=== PATIENT | female | born 1990 | race Caucasian/White ===

== ENCOUNTER → 2018-01-05 | Outpatient (CLI) | payer BC | LOC: M WUC 15:54 | DX: M25.571 Pain in right ankle and joints of right foot (principal); M77.31 Calcaneal spur, right foot | CPT/HCPCS: 73610 ==

== ENCOUNTER → 2019-02-25 | Outpatient (CLI) | payer OTHER ==
[~2019-02-25] MED LIST: *ANUSOI RE; FLAG500T OR; IBUP400T OR; IBUP600T OR; Lanolin Cream TOP; PERC5TAB8 OR; PROV10TA OR; Prenatal Vitamins PO; VIBR100C OR
--- NOTE | 2019-02-26 05:21 | REP ---
Clinical: Left elbow pain . Technique: AP, lateral, bilateral oblique views of the left elbow. Findings: No acute fracture or dislocation is appreciated. Joint spaces and surrounding soft tissues appear normal. Lateral view demonstrates normal positioning to the anterior and posterior fat pads without evidence for effusion/hemarthrosis. No subcutaneous emphysema or foreign body identified. Impression: Normal left elbow radiographs. Electronically Signed by Andriy Lyons MD 02/26/2019 05:13 A
== END ==
LOC: M WUC 15:53
PROVIDERS: ATTEND Physician Assistant
DX: M25.522 Pain in left elbow (principal)

== ENCOUNTER → 2019-08-10 | Outpatient (CLI) | payer OTHER ==
--- NOTE | 2019-08-10 12:53 | REP ---
Left foot: Four views. History: Pain in the foot. Findings: Four views of the left foot show overall normal mineralization. There is no visible fracture or subluxation. Impression: Negative radiographs left foot. Electronically Signed by Loco Watters MD 08/10/2019 12:44 P
== END ==
LOC: M ADAMS 12:22
PROVIDERS: ATTEND Physician Assistant
DX: M79.672 Pain in left foot (principal)

== ENCOUNTER → 2019-09-11 | Outpatient (CLI) | payer OTHER ==
--- NOTE | 2019-09-11 14:39 | REP ---
Clinical: Right ankle pain . Technique: AP, lateral, bilateral oblique views. Findings: No acute fracture or dislocation. Skeletal structures and joint spaces are intact and normal. Ankle mortise appears stable. No subcutaneous emphysema or radiodense foreign body. Impression: Normal right ankle radiograph series. Electronically Signed by Andriy Lyons MD 09/11/2019 02:30 P
--- NOTE | 2019-09-11 14:49 | REP ---
Clinical: Pain Technique: AP, lateral, bilateral oblique views right foot pain . Findings: The osseous structures and joint spaces are intact and normal. There is no evidence for acute fracture or dislocation. Surrounding soft tissues are unremarkable. No subcutaneous emphysema or radiodense foreign body. Impression: Age-appropriate examination. No acute fracture or dislocation. Electronically Signed by Andriy Lyons MD 09/11/2019 02:36 P
== END ==
LOC: M ADAMS 14:09
PROVIDERS: ATTEND Physician Assistant
DX: M25.571 Pain in right ankle and joints of right foot (principal)

== ENCOUNTER 2022-08-11 05:34 | Day surgery (SDC) | payer OTHER ==
[~2022-08-11] VITALS: Ht 162.6 cm; Wt 91.2 kg
[2022-08-11 06:15] LABS: BASO # 0.1 10^3/uL (0.0-0.2); BASO % 0.7 % (0.0-1.0); EOS # 0.2 10^3/uL (0.0-0.5); EOS % 1.5 % (0.0-3.0); HEMATOCRIT 41.7 % (36.0-47.0); HEMOGLOBIN 14.2 g/dl (12.0-15.5); LYMPH # 2.3 10^3/uL (1.5-5.0); LYMPH % 18.6 % (24.0-44.0); MEAN CORPUSCULAR HEMOGLOBIN 28.5 pg (27.0-33.0); MEAN CORPUSCULAR HGB CONC 34.1 g/dl (32.0-36.5); MEAN CORPUSCULAR VOLUME 83.7 fl (80.0-96.0); MONO # 0.7 10^3/uL (0.0-0.8); MONO % 6.1 % (2.0-8.0); NEUTROPHILS # 8.9 10^3/uL (1.5-8.5); NEUTROPHILS % 72.6 % (36.0-66.0); PLATELET COUNT, AUTOMATED 275 10^3/uL (150-450); RED BLOOD COUNT 4.98 10^6/uL (4.00-5.40); WHITE BLOOD COUNT 12.2 10^3/uL (4.0-10.0)
[2022-08-11 06:38] LABS: ALBUMIN 3.9 G/DL (3.2-5.2); ALKALINE PHOSPHATASE 76 U/L (46-116); ALT/SGPT 27 U/L (7.0-40); AST/SGOT 24 U/L (<34); BILIRUBIN,TOTAL 0.3 MG/DL (0.3-1.2); BLOOD UREA NITROGEN 11 MG/DL (9-23); CARBON DIOXIDE LEVEL 24 MMOL/L (20-31); CHLORIDE LEVEL 104 MMOL/L (98-107); CREATININE FOR GFR 0.68 MG/DL (0.55-1.30); GLOMERULAR FILTRATION RATE > 60.0 (>60); GLUCOSE, FASTING 116 MG/DL (60-100); SODIUM LEVEL 137 MMOL/L (136-145); TOTAL PROTEIN 6.8 G/DL (5.7-8.2)
[2022-08-11] MEDS ORDERED: GI COCKTAIL 50ML BTL(HYOSCYAMINE/MAALOX/LIDOCAINE VISCOUS)(1:3:1) PO ONE (08:45)
[2022-08-11] MEDS ORDERED: SUCRALFATE 1 GM TAB PO ONE (08:45)
[2022-08-11] MEDS ORDERED: ONDANSETRON 4MG 2ML VIAL IV ONE (08:45)
[2022-08-11] MEDS ORDERED: NS 1,000 ML IV ONE (08:45)
[2022-08-11] MEDS ORDERED: PANTOPRAZOLE 40MG VIAL IV ONE (08:45)
[2022-08-11] MEDS ORDERED: ISOVUE-370 76% 100ML VIAL As Ordered ONE (08:47)
[2022-08-11] MEDS ORDERED: PIPERACILLIN/TAZOBACTAM SOD 3.375 GM in D5W MINI-BAG PLUS 50 ML IV ONE (10:45)
[2022-08-11] MEDS ORDERED: MORPHINE 4 MG/ML 1ML VIAL IV ONE (11:00)
[2022-08-11] MEDS ORDERED: APAP500T10 PO (11:32)
[2022-08-11] MEDS ORDERED: HOME MED LIST COMPLETE! XX SCH (11:35)
[2022-08-11 12:34] LABS: RSV AMPLIFICATION NEGATIVE (NEGATIVE)
[2022-08-11] MEDS ORDERED: AUGM500T34 PO (14:44)
[2022-08-11] MEDS ORDERED: OXYC1TAB23 PO (14:49)
[2022-08-11] MEDS ORDERED: BUPIVACAINE HCL 0.25% 30ML VIAL As Ordered ONE (15:28)
[2022-08-11] MEDS ORDERED: LIDOCAINE 1% SDV 30ML VIAL As Ordered ONE (15:28)
[2022-08-11] MEDS ORDERED: MIDAZOLAM INJ 2MG/2ML VIAL As Ordered ONE (15:45)
[2022-08-11] MEDS ORDERED: fentaNYL 100 MCG/2 ML INJECTION As Ordered ONE ×2 (15:45→17:08)
[2022-08-11] MEDS ORDERED: LIDOCAINE 2% 100MG/5ML SDV (FOR ANES.) As Ordered ONE (15:49)
[2022-08-11] MEDS ORDERED: propofoL 200 MG/20 ML VIAL As Ordered ONE (15:49)
[2022-08-11] MEDS ORDERED: SUCCINYLCHOLINE 100MG/5ML SYRINGE As Ordered ONE (15:49)
[2022-08-11] MEDS ORDERED: ROCURONIUM BROMIDE 50MG/5ML VIAL As Ordered ONE (15:51)
[2022-08-11] MEDS ORDERED: ZOSYN 3.375GM VIAL As Ordered ONE (16:17)
[2022-08-11] MEDS ORDERED: KETOROLAC 60MG 2ML VIAL As Ordered ONE (16:50)
[2022-08-11] MEDS ORDERED: ONDANSETRON 4MG 2ML VIAL As Ordered ONE (16:50)
[2022-08-11] MEDS ORDERED: ACETAMINOPHEN 1000MG 100ML IV BAG As Ordered ONE (16:50)
[2022-08-11] MEDS ORDERED: METOCLOPRAMIDE INJ 10MG/2ML VIAL As Ordered ONE (16:50)
[2022-08-11] MEDS ORDERED: SUGAMMADEX SODIUM 500 MG/5 ML VIAL (BRIDION) As Ordered ONE (16:51)
[2022-08-11] MEDS ORDERED: fentaNYL 100 MCG/2 ML INJECTION IV PRN (17:35)
[2022-08-11] MEDS ORDERED: oxyCODONE 5MG TAB PO PRN (17:35)
[2022-08-11] MEDS ORDERED: HYDROMORPHONE HCL 0.5 MG/ 0.5 ML SYRINGE IV PRN (17:35)
[2022-08-11] MEDS ORDERED: ONDANSETRON 4MG 2ML VIAL IV PRN (17:35)
[2022-08-11] MEDS ORDERED: LR 1,000 ML IV SCH (17:35)
[2022-08-11 18:22] VITALS: BP 128/69
[2022-08-11] MEDS ORDERED: NORCO, ANEXSIA 5/325MG TABLET (HYDROcodone/ACETAMINOPHEN) PO PRN (20:40)
[2022-08-11] MEDS ORDERED: KETOROLAC 30 MG/ML 1ML VIAL IV SCH (23:00)
== END 2022-08-11 18:25 | disposition home or self-care (01) ==
LOC: M ED 05:34 → M SDC 14:45
PROVIDERS: ATTEND Surgery
DX: K35.80 Unspecified acute appendicitis (principal); Z91.040 Latex allergy status
CPT/HCPCS: 44970; 80053; 81000; 81015; 83605; 84702; 85025; 87086; 87631; 88304; 99284; C9113; J0330; J1100; J2405; J2543

== ENCOUNTER → 2022-11-11 | Outpatient (REF) | payer OTHER ==
[~2022-11-11] MED LIST changes: +APAP500T10 PO; +AUGM500T34 PO; +OXYC1TAB23 PO
== END ==
LOC: M LAB REF 16:18
PROVIDERS: ATTEND Physician Assistant
DX: J02.9 Acute pharyngitis, unspecified (principal)

== ENCOUNTER 2022-11-27 19:33 | Emergency (ER) | payer OTHER ==
[~2022-11-27] VITALS: Ht 162.6 cm; Wt 86.9 kg
[2022-11-27] MEDS ORDERED: EXCETAB32 PO (19:40)
[2022-11-27] MEDS ORDERED: DIPH50CA PO (19:40)
[2022-11-27 20:24] LABS: BASO # 0.1 10^3/uL (0.0-0.2); BASO % 0.4 % (0.0-1.0); EOS % 0.2 % (0.0-3.0); HEMATOCRIT 41.2 % (36.0-47.0); HEMOGLOBIN 14.2 g/dl (12.0-15.5); LYMPH # 2.5 10^3/uL (1.5-5.0); LYMPH % 19.7 % (24.0-44.0); MEAN CORPUSCULAR HEMOGLOBIN 29.3 pg (27.0-33.0); MEAN CORPUSCULAR HGB CONC 34.5 g/dl (32.0-36.5); MEAN CORPUSCULAR VOLUME 85.1 fl (80.0-96.0); MONO # 0.6 10^3/uL (0.0-0.8); MONO % 4.3 % (2.0-8.0); NEUTROPHILS # 9.5 10^3/uL (1.5-8.5); NEUTROPHILS % 74.8 % (36.0-66.0); PLATELET COUNT, AUTOMATED 298 10^3/uL (150-450); RED BLOOD COUNT 4.84 10^6/uL (4.00-5.40); WHITE BLOOD COUNT 12.7 10^3/uL (4.0-10.0)
[2022-11-27] MEDS ORDERED: METOCLOPRAMIDE INJ 10MG/2ML VIAL IV ONE (20:30)
[2022-11-27] MEDS ORDERED: NS 1,000 ML IV ONE (20:30)
[2022-11-27] MEDS ORDERED: diphenhydrAMINE 50MG/ML VIAL IV ONE (20:30)
[2022-11-27 20:53] LABS: ALBUMIN 4.1 G/DL (3.2-5.2); ALKALINE PHOSPHATASE 96 U/L (46-116); ALT/SGPT 32 U/L (7.0-40); AST/SGOT 50 U/L (<34); BILIRUBIN,DIRECT 0.1 MG/DL (<0.4); BILIRUBIN,TOTAL 0.4 MG/DL (0.3-1.2); CK-MB VALUE MASS < 1.0 NG/ML (<3.6); CPK CREATINE PHOSPHOKINASE 157 U/L (34-145); LIPASE 38 U/L (12-53); MB/CK RELATIVE INDEX 0.63 (< OR =4); TOTAL PROTEIN 7.2 G/DL (5.7-8.2)
[2022-11-27 20:54] LABS: RSV AMPLIFICATION NEGATIVE (NEGATIVE)
[2022-11-27] MEDS ORDERED: ACETAMINOPHEN 1000MG 100ML IV BAG IV ONE (21:35)
[2022-11-27 22:11] LABS: BLOOD UREA NITROGEN 9 MG/DL (9-23); CALCIUM LEVEL 8.4 MG/DL (8.5-10.1); CARBON DIOXIDE LEVEL 19 MMOL/L (20-31); CHLORIDE LEVEL 109 MMOL/L (98-107); CREATININE FOR GFR 0.69 MG/DL (0.55-1.30); GLOMERULAR FILTRATION RATE > 60.0 (>60); GLUCOSE, FASTING 110 MG/DL (60-100); MAGNESIUM LEVEL 1.9 MG/DL (1.8-2.4); POTASSIUM SERUM 3.6 MMOL/L (3.5-5.1); SODIUM LEVEL 140 MMOL/L (136-145)
[2022-11-27] MEDS ORDERED: KETOROLAC 30 MG/ML 1ML VIAL IV ONE (23:00)
[2022-11-27 23:59] LABS: CK-MB VALUE MASS < 1.0 NG/ML (<3.6); CPK CREATINE PHOSPHOKINASE 155 U/L (34-145); MB/CK RELATIVE INDEX 0.64 (< OR =4)
[2022-11-28] MEDS ORDERED: IBUP-1022 PO (00:17)
[2022-11-28 00:29] VITALS: BP 131/72
== END 2022-11-28 00:35 | disposition home or self-care (01) ==
LOC: M ED 19:33
DX: G43.909 Migraine, unspecified, not intractable, without status migrainosus (principal); R07.89 Other chest pain; Z91.040 Latex allergy status
CPT/HCPCS: 70450; 71046; 80047; 80048; 80076; 82550; 82553; 83690; 83735; 84702; 85025; 85379; 87631; 93005; 96374; 96375; 99284; J0131; J1100; J1200; J1885; J2765

== ENCOUNTER → 2023-05-27 | Outpatient (REF) | payer OTHER ==
[~2023-05-27] MED LIST changes: +DIPH50CA PO; +EXCETAB32 PO; +IBUP-1022 PO
== END ==
LOC: M LAB REF 17:56
PROVIDERS: ATTEND Physician Assistant Medical
DX: R05.9 Cough, unspecified (principal)

== ENCOUNTER → 2023-12-15 | Outpatient (CLI) | payer OTHER | LOC: M RAD 14:30 | PROVIDERS: ATTEND Psychiatry & Neurology Neurology | DX: G43.009 Migraine without aura, not intractable, without status migrainosus (principal); M50.322 Other cervical disc degeneration at C5-C6 level; M48.02 Spinal stenosis, cervical region; M99.63 Osseous and subluxation stenosis of intervertebral foramina of lumbar region ==

== ENCOUNTER 2024-03-13 20:20 | Emergency (ER) | payer MEDICAID, OTHER ==
[~2024-03-13] VITALS: Ht 167.6 cm; Wt 87.8 kg
[~2024-03-13 20:20] MED LIST changes: +ATOG60TA PO; +DULO1CAP4 PO; +TRAZ-186 PO; +UBRO100T PO
[2024-03-13 20:21] VITALS: TEMP 97.6
[2024-03-13 20:59] LABS: BASO # 0.1 10^3/uL (0.0-0.2); BASO % 0.5 % (0.0-1.0); EOS # 0.2 10^3/uL (0.0-0.5); EOS % 1.3 % (0.0-3.0); HEMATOCRIT 40.5 % (36.0-47.0); LYMPH # 3.1 10^3/uL (1.5-5.0); LYMPH % 20.6 % (24.0-44.0); MEAN CORPUSCULAR HEMOGLOBIN 28.6 pg (27.0-33.0); MEAN CORPUSCULAR HGB CONC 34.6 g/dl (32.0-36.5); MEAN CORPUSCULAR VOLUME 82.8 fl (80.0-96.0); MONO # 0.8 10^3/uL (0.0-0.8); MONO % 5.1 % (2.0-8.0); NEUTROPHILS # 10.7 10^3/uL (1.5-8.5); PLATELET COUNT, AUTOMATED 250 10^3/uL (150-450); RED BLOOD COUNT 4.89 10^6/uL (4.00-5.40); WHITE BLOOD COUNT 14.9 10^3/uL (4.0-10.0)
[2024-03-13 21:14] LABS: ERYTHROCYTE SEDIMENTATION RATE 3 mm/hr (0-20)
[2024-03-13] MEDS ORDERED: KETOROLAC 30 MG/ML 1ML VIAL IM ONE (21:20)
[2024-03-13] MEDS ORDERED: ACETAMINOPHEN 500 MG TAB PO ONE (21:20)
[2024-03-13 21:21] LABS: CK-MB VALUE MASS < 1.0 NG/ML (<3.6)
[2024-03-13 21:22] LABS: C REACTIVE PROTEIN QUANTITATIV < 0.40 MG/DL (<1.0)
[2024-03-13 21:26] LABS: ALBUMIN 3.9 G/DL (3.2-5.2); ALKALINE PHOSPHATASE 77 U/L (46-116); ALT/SGPT 21 U/L (7.0-40); AST/SGOT 14 U/L (<34); BILIRUBIN,DIRECT 0.2 MG/DL (<0.4); BILIRUBIN,TOTAL 0.5 MG/DL (0.3-1.2); BLOOD UREA NITROGEN < 5 MG/DL (9-23); CALCIUM LEVEL 9.1 MG/DL (8.5-10.1); CARBON DIOXIDE LEVEL 24 MMOL/L (20-31); CHLORIDE LEVEL 109 MMOL/L (98-107); CPK CREATINE PHOSPHOKINASE 78 U/L (34-145); CREATININE FOR GFR 0.72 MG/DL (0.55-1.30); GLOMERULAR FILTRATION RATE > 60.0 (>60); GLUCOSE, FASTING 114 MG/DL (60-100); MB/CK RELATIVE INDEX 1.28 (< OR =4); POTASSIUM SERUM 3.9 MMOL/L (3.5-5.1); SODIUM LEVEL 140 MMOL/L (136-145); TOTAL PROTEIN 6.5 G/DL (5.7-8.2)
[2024-03-13] MEDS ORDERED: ISOVUE-370 76% 100ML VIAL As Ordered ONE (21:30)
[2024-03-13 21:40] LABS: HCG, SERUM QUALITATIVE NEGATIVE (NEGATIVE)
[2024-03-13] MEDS: NS 1,000 ML IV ONE (22:15)
[2024-03-13] MEDS ORDERED: ACETAMINOPHEN *IV* 1,000 MG in IV 1 EA IV ONE (22:15)
[2024-03-13] MEDS: METOCLOPRAMIDE INJ 10MG/2ML VIAL IV ONE (22:15)
[2024-03-13 22:20] LABS: CK-MB VALUE MASS < 1.0 NG/ML (<3.6)
[2024-03-13 22:22] LABS: CPK CREATINE PHOSPHOKINASE 81 U/L (34-145); MB/CK RELATIVE INDEX 1.23 (< OR =4)
[2024-03-13] MEDS: MIDAZOLAM INJ 2MG/2ML VIAL IV STA (22:26)
[2024-03-13] MEDS: KETOROLAC 30 MG/ML 1ML VIAL IV ONE (23:38)
[2024-03-14 01:00] VITALS: BP 103/57; O2SAT 99
== END 2024-03-14 01:22 | disposition home or self-care (01) ==
LOC: M ED 20:20
DX: R07.9 Chest pain, unspecified (principal); G43.909 Migraine, unspecified, not intractable, without status migrainosus; F32.A Depression, unspecified; Z79.899 Other long term (current) drug therapy
CPT/HCPCS: 36415; 70450; 70496; 70498; 80047; 80048; 80076; 82550; 82553; 84484; 84703; 85025; 85652; 86140; 93005; 96374; 96375; 99285; J1100; J1885; J2250; J2765; Q9967

== ENCOUNTER → 2024-04-25 | Outpatient (CLI) | payer OTHER | LOC: M RAD 10:08 | PROVIDERS: ATTEND Student in an Organized Health Care Education/Training Program | DX: S60.222D Contusion of left hand, subsequent encounter (principal); M67.432 Ganglion, left wrist ==

== ENCOUNTER 2025-05-17 12:11 | Emergency (ER) | payer OTHER ==
[~2025-05-17] VITALS: Ht 162.6 cm; Wt 89.5 kg
[~2025-05-17 12:11] MED LIST changes: -DIPH50CA PO; +DIPH50CA31 PO; -IBUP-1022 PO; +IBUP600T42 PO
[2025-05-17 12:23] VITALS: TEMP 99.1
[2025-05-17] MEDS ORDERED: TOPI-21 (12:27)
[2025-05-17] MEDS ORDERED: TOPI-256 (12:27)
[2025-05-17 14:15] VITALS: BP 125/68; O2SAT 98
[2025-05-17] MEDS: ACETAMINOPHEN 325 MG TAB PO ONE (14:15)
== END 2025-05-17 14:23 | disposition home or self-care (01) ==
LOC: M ED 12:11 → EDBD 12:11 → M ED 14:23
DX: S06.0X0A Concussion without loss of consciousness, initial encounter (principal); S50.02XA Contusion of left elbow, initial encounter; W01.198A Fall on same level from slipping, tripping and stumbling with subsequent striking against other object, initial encounter; M25.412 Effusion, left shoulder; F32.A Depression, unspecified; F41.9 Anxiety disorder, unspecified; Z79.899 Other long term (current) drug therapy; Z91.040 Latex allergy status; Y92.512 Supermarket, store or market as the place of occurrence of the external cause; Y93.89 Activity, other specified; Y99.9 Unspecified external cause status